=== PATIENT | female | born 1960 | race Caucasian/White ===

== ENCOUNTER → 2017-08-10 | Outpatient (CLI) | payer OTHER ==
--- NOTE | 2017-08-10 16:13 | REPMRS ---
Patient History The patient states she had a clinical breast exam in 08/2017. Patient is postmenopausal. Family history of breast cancer in maternal aunt at age 50 or over, breast cancer in paternal aunt at age 50 or over, and breast cancer in maternal grandmother at age 50 or over. Digital Woman Screen Mammo: August 10, 2017 - Exam #: [id number] Bilateral CC and MLO view(s) were taken. Technologist: Dawna Anthony, Technologist Prior study comparison: August 09, 2016, digital woman screen mammo performed at [facility]. July 11, 2015, digital woman screen mammo performed at [facility]. July 11, 2014, digital woman screen mammo performed at [facility]. FINDINGS: There are scattered fibroglandular densities. There has been no change in the appearance of the mammogram from the prior studies. There is a moderate amount of residual fibroglandular tissue which is fairly symmetric. There is no interval development of dominant mass, architectural distortion, or clustered microcalcification suggestive of malignancy. Scattered lymph nodes are seen in the axillae. No significant changes when compared with prior studies. ASSESSMENT: BI-RADS/ACR category 2 mammogram. Benign finding(s). Recommendation Routine screening mammogram in 1 year (for women over age 40). This mammogram was interpreted with the aid of an FDA-approved computer-aided dectection system. A. Negative x-ray reports should not delay biopsy if a dominant or clinically suspicious mass is present. B. Four to eight percent of cancers are not identified by mammography. C. Adenosis and dense breast may obscure an underlying neoplasm. Electronically Signed By: Gordon Pulido MD 08/10/17 [id number]
== END ==
LOC: M WHC 15:05
PROVIDERS: ATTEND Nurse Practitioner Family
DX: Z12.31 Encounter for screening mammogram for malignant neoplasm of breast (principal); Z78.0 Asymptomatic menopausal state

== ENCOUNTER → 2017-08-10 | Outpatient (REF) | payer OTHER | LOC: M SFHCWAGY 17:01 | PROVIDERS: ATTEND Nurse Practitioner Family | DX: K13.0 Diseases of lips (principal) ==

== ENCOUNTER → 2018-08-11 | Outpatient (CLI) | payer OTHER | LOC: M WHC 15:03 | DX: Z12.31 Encounter for screening mammogram for malignant neoplasm of breast (principal); Z78.0 Asymptomatic menopausal state; Z80.3 Family history of malignant neoplasm of breast | CPT/HCPCS: 77067 ==

== ENCOUNTER → 2018-08-11 | Outpatient (REF) | payer OTHER ==
[2018-08-17 14:24] LABS: HPV HYBRID CAPTURE II Negative (Negative)
== END ==
LOC: M SFHCWAGY 15:30
DX: Z12.4 Encounter for screening for malignant neoplasm of cervix (principal)
CPT/HCPCS: G0123

== ENCOUNTER → 2019-03-01 | Outpatient (CLI) | payer OTHER | LOC: M RAD 15:03 | PROVIDERS: ATTEND Nurse Practitioner Family | DX: Z91.89 Other specified personal risk factors, not elsewhere classified (principal); Z53.9 Procedure and treatment not carried out, unspecified reason ==

== ENCOUNTER → 2019-03-07 | Outpatient (CLI) | payer OTHER ==
[2019-03-07 18:47] LABS: BLOOD UREA NITROGEN 19 MG/DL (7-18); CREATININE FOR GFR 0.76 MG/DL (0.55-1.30); GLOMERULAR FILTRATION RATE > 60.0 (>51)
== END ==
LOC: M SMT 14:47
PROVIDERS: ATTEND Nurse Practitioner Family
DX: I10 Essential (primary) hypertension (principal)

== ENCOUNTER → 2019-04-17 | Outpatient (REF) | payer OTHER | LOC: M SFHCPLAZ 16:11 | PROVIDERS: ATTEND Dermatology | DX: D49.2 Neoplasm of unspecified behavior of bone, soft tissue, and skin (principal) ==

== ENCOUNTER → 2019-08-14 | Outpatient (CLI) | payer OTHER ==
--- NOTE | 2019-08-14 16:52 | REPMRS ---
Patient History The patient states she had a clinical breast exam in 2018. Family history of breast cancer at age 50 or over in maternal grandmother, breast cancer at age 50 or over in maternal aunt, breast cancer at age 50 or over in paternal aunt. No Hormone Replacement Therapy 3D TOMOSYNTHESIS WAS PERFORMED. Digital Woman Screen Mammo: August 14, 2019 - Exam #: [id number] Bilateral CC and MLO view(s) were taken. Technologist: Janelle Rajan, Technologist Prior study comparison: August 11, 2018, bilateral digital woman screen mammo performed at [facility]. August 10, 2017, digital woman screen mammo performed at [facility]. FINDINGS: The breast tissue is heterogeneously dense. This may lower the sensitivity of mammography. There has been no change in the appearance of the mammogram from the prior studies. There is a moderate amount of residual fibroglandular tissue which is fairly symmetric. There is no interval development of dominant mass, areas of architectural distortion, or clustered microcalcification typical of malignancy. Assessment: BI-RADS/ACR category 1 mammogram. Negative Mammogram. Recommendation Routine screening mammogram in 1 year (for women over age 40). This mammogram was interpreted with the aid of an FDA-approved computer-aided dectection system. THE LIFETIME RISK OF BREAST CANCER IS 25.0%, THEREFORE SUPPLEMENTAL SCREENING MRI OF THE BREASTS IS RECOMMENDED IN 6 MONTHS. Electronically Signed By: Jose Juan Patel MD 08/14/19 [id number]
== END ==
LOC: M WHC 15:08
PROVIDERS: ATTEND Nurse Practitioner Family
DX: Z12.31 Encounter for screening mammogram for malignant neoplasm of breast (principal); Z80.3 Family history of malignant neoplasm of breast

== ENCOUNTER → 2019-09-20 | Outpatient (CLI) | payer BC | LOC: M PLALAB 15:53 | PROVIDERS: ATTEND Nurse Practitioner Family | DX: Z13.9 Encounter for screening, unspecified (principal) ==

== ENCOUNTER → 2020-02-26 | Outpatient (REF) | payer BC ==
[2020-02-26 15:08] LABS: BLOOD UREA NITROGEN 16 MG/DL (7-18); GLOMERULAR FILTRATION RATE > 60.0 (>51)
== END ==
LOC: M PLALAB 12:34
PROVIDERS: ATTEND Nurse Practitioner Family
DX: Z91.89 Other specified personal risk factors, not elsewhere classified (principal)

== ENCOUNTER → 2020-10-02 | Outpatient (CLI) | payer BC ==
--- NOTE | 2020-10-02 17:25 | REPMRS ---
Patient History The patient states she had a clinical breast exam in 2020. Family history of breast cancer at age 50 or over in maternal grandmother, breast cancer at age 50 or over in maternal aunt, breast cancer at age 50 or over in paternal aunt. No Hormone Replacement Therapy Digital Woman Screen Mammo: October 02, 2020 - Exam #: [id number] Bilateral CC and MLO view(s) were taken. Technologist: Janelle Rajan, Technologist Prior study comparison: August 14, 2019, bilateral digital woman screen mammo performed at [facility]. August 11, 2018, bilateral digital woman screen mammo performed at [facility]. August 10, 2017, digital woman screen mammo performed at [facility]. FINDINGS: There are scattered fibroglandular densities. The Volpara volumetric breast density category is:B. There has been no change in the appearance of the mammogram from the prior studies. There is a mild amount of scattered fibroglandular density which is fairly symmetric. There is no interval development of dominant mass, architectural distortion, or grouped microcalcification suggestive of malignancy. 3-D tomosynthesis shows no additional findings. Assessment: BI-RADS/ACR category 1 mammogram. Negative Mammogram. Recommendation Breast MRI of both breasts in 6 months. Routine screening mammogram of both breasts in 1 year (for women over age 40). This patient's [facility] Lifetime Breast Cancer Risk is estimated at 23.8 %. Annual screening Breast MRI scanniing is recommended for patient's whose lifetime risk assessment is over 20%. This mammogram was interpreted with the aid of an FDA-approved computer-aided dectection system. Electronically Signed By: Kalin Huertas MD 10/02/20 [id number]
== END | disposition home or self-care (01) ==
LOC: M WHC 15:15
DX: Z12.31 Encounter for screening mammogram for malignant neoplasm of breast (principal)

== ENCOUNTER → 2021-04-01 | Outpatient (CLI) | payer BC ==
[~2021-04-01] MED LIST: PROHANCE 279.3MG/ML 15ML VIAL As Ordered ONE; PROHANCE 279.3MG/ML 5ML VIAL As Ordered ONE
--- NOTE | 2021-04-03 15:31 | REP ---
INDICATION: HIGH RISK BREAST CA DENSE BREAST TISSUE. COMPARISON: Comparison breast MRI study is from March 11, 2020. TECHNIQUE: Three Brianne MRI imaging was performed with a dedicated breast coil. Axial, coronal, and sagittal T1 and T2 weighted scans were obtained with and without fat saturation in the usual fashion. The study includes dynamically acquired post gadolinium-enhanced imaging with image subtraction. Maximum intensity projection and multi planar reformation imaging is included as well. This study is interpreted with the aid of [employer], an FDA approved computer aided detection (CAD) software program, on a dedicated breast MRI workstation. The gadolinium enhancement dose is 19 mL of intravenous ProHance. FINDINGS: There is a mild to moderate amount of fibroglandular tissue bilaterally corresponding with the mammographic pattern. There is minimal background parenchymal enhancement. There is no evidence of axillary lymphadenopathy or significant breast cystic change. High-resolution pre and post-contrast T1 and T2 weighted scans show no suspicious morphologic abnormality in either breast. Dynamically acquired sequential postcontrast images show no suspicious area of enhancement and washout kinetics in either breast to suggest malignancy. Subtraction images show no additional abnormality. IMPRESSION: BI-RADS category 1 negative bilateral breast MRI findings. <Electronically signed by Kalin Huertas > 04/03/21 [id number]
== END ==
LOC: M RAD 17:41
PROVIDERS: ATTEND Nurse Practitioner Family
DX: Z91.89 Other specified personal risk factors, not elsewhere classified (principal)
CPT/HCPCS: A9576; C8908

== ENCOUNTER → 2021-12-01 | Outpatient (CLI) | payer BC, OTHER | LOC: M WHC 14:28 | PROVIDERS: ATTEND Obstetrics & Gynecology | DX: Z12.31 Encounter for screening mammogram for malignant neoplasm of breast (principal); Z80.3 Family history of malignant neoplasm of breast ==

== ENCOUNTER → 2021-12-30 | Outpatient (CLI) | payer OTHER | LOC: M WHC 07:55 | PROVIDERS: ATTEND Obstetrics & Gynecology | DX: M85.851 Other specified disorders of bone density and structure, right thigh (principal) ==

== ENCOUNTER → 2022-04-03 | Outpatient (CLI) | payer OTHER ==
[~2022-04-03] MED LIST changes: +CALC600T60 PO; +CHOL25TA9 PO; +LISI20TA35 PO; +PERC5TAB12 PO; -PROHANCE 279.3MG/ML 15ML VIAL As Ordered ONE; -PROHANCE 279.3MG/ML 5ML VIAL As Ordered ONE
== END ==
LOC: M EKG 10:04
PROVIDERS: ATTEND Anesthesiology
DX: R03.0 Elevated blood-pressure reading, without diagnosis of hypertension (principal); Z78.0 Asymptomatic menopausal state

== ENCOUNTER → 2022-04-04 | Outpatient (CLI) | payer OTHER ==
[~2022-04-04] MED LIST changes: -PERC5TAB12 PO
== END ==
LOC: M LABSMTC 09:42
PROVIDERS: ATTEND Anesthesiology
DX: Z01.812 Encounter for preprocedural laboratory examination (principal); Z20.822 Contact with and (suspected) exposure to COVID-19

== ENCOUNTER 2022-04-07 06:06 | Day surgery (SDC) | payer OTHER ==
[~2022-04-07] VITALS: Ht 160 cm; Wt 103.4 kg
[~2022-04-07 06:06] MED LIST changes: +LR 1,000 ML IV ONE; +ceFAZolin SOD 2 GM in IV 1 EA IV ONE
[2022-04-07] MEDS ORDERED: LR 1,000 ML IV SCH ×2 (06:25→09:15)
[2022-04-07 06:36] LABS: HEMATOCRIT 43.8 % (36.0-47.0); MEAN CORPUSCULAR HEMOGLOBIN 31.3 pg (27.0-33.0); MEAN CORPUSCULAR HGB CONC 34.2 g/dl (32.0-36.5); MEAN CORPUSCULAR VOLUME 91.3 fl (80.0-96.0); PLATELET COUNT, AUTOMATED 310 10^3/uL (150-450); WHITE BLOOD COUNT 6.9 10^3/uL (4.0-10.0)
[2022-04-07 06:53] LABS: BLOOD UREA NITROGEN 13 MG/DL (7-18); CALCIUM LEVEL 9.2 MG/DL (8.8-10.2); CARBON DIOXIDE LEVEL 31 MEQ/L (21-32); CHLORIDE LEVEL 107 MEQ/L (98-107); CREATININE FOR GFR 0.76 MG/DL (0.55-1.30); GLOMERULAR FILTRATION RATE > 60.0 (>45); GLUCOSE, FASTING 123 MG/DL (70-100); POTASSIUM SERUM 3.8 MEQ/L (3.5-5.1); SODIUM LEVEL 142 MEQ/L (136-145)
[2022-04-07] MEDS ORDERED: fentaNYL 100 MCG/2 ML INJECTION As Ordered ONE ×2 (07:13→08:55)
[2022-04-07] MEDS ORDERED: MIDAZOLAM INJ 2MG/2ML VIAL (J2250 PER 1MG) As Ordered ONE (07:13)
[2022-04-07] MEDS ORDERED: propofoL 200 MG/20 ML VIAL As Ordered ONE (07:14)
[2022-04-07] MEDS ORDERED: LIDOCAINE 2% 100MG/5ML SDV (FOR ANES.) As Ordered ONE (07:14)
[2022-04-07] MEDS ORDERED: ROCURONIUM BROMIDE 50 MG/5 ML VIAL As Ordered ONE ×2 (07:14→08:21)
[2022-04-07] MEDS ORDERED: FLUORESCEIN 10% (100MG/ML) 5ML VIAL As Ordered ONE (07:14)
[2022-04-07] MEDS ORDERED: ONDANSETRON 4MG 2ML VIAL As Ordered ONE (07:14)
[2022-04-07] MEDS ORDERED: dexameTHASONE 4 MG/ML 1ML VIAL (J1100 PER 1MG) As Ordered ONE (07:14)
[2022-04-07] MEDS ORDERED: BUPIVACAINE/EPIN 0.25% 30 ML VIAL As Ordered ONE (07:14)
[2022-04-07] MEDS ORDERED: ACETAMINOPHEN 1000MG 100ML IV BTL (OFIRMEV) (J0131 PER 10MG) As Ordered ONE (07:14)
[2022-04-07] MEDS ORDERED: KETAMINE HCL 200 MG/20 ML VIAL As Ordered ONE (07:15)
[2022-04-07] MEDS ORDERED: SUGAMMADEX SODIUM 500 MG/5 ML VIAL (BRIDION) As Ordered ONE (08:41)
[2022-04-07] MEDS ORDERED: KETOROLAC 60MG 2ML VIAL As Ordered ONE (08:50)
[2022-04-07] MEDS ORDERED: ONDANSETRON 4MG 2ML VIAL IV PRN (09:15)
[2022-04-07] MEDS ORDERED: fentaNYL 100 MCG/2 ML INJECTION IV PRN (09:15)
[2022-04-07] MEDS ORDERED: PERC5TAB12 PO (09:17)
[2022-04-07] MEDS: oxyCODONE 5MG TAB PO PRN ×2 (09:39→10:03)
[2022-04-07] MEDS ORDERED: METOCLOPRAMIDE INJ 10MG/2ML VIAL (J2765 PER 1) IV ONE (10:30)
[2022-04-07 11:00] VITALS: BP 133/62
[2022-04-07] MEDS ORDERED: SIMETHICONE 80MG CHEW TAB PO SCH (11:00)
[2022-04-07] MEDS ORDERED: PERCOCET 5MG/325MG TAB PO PRN (11:00)
[2022-04-07] MEDS ORDERED: IBUPROFEN 800 MG TAB PO SCH (16:00)
== END 2022-04-07 11:31 | disposition home or self-care (01) ==
LOC: M SDC 06:06
PROVIDERS: ATTEND Obstetrics & Gynecology
DX: D25.9 Leiomyoma of uterus, unspecified (principal); N80.0 Endometriosis of uterus; N88.8 Other specified noninflammatory disorders of cervix uteri; D27.0 Benign neoplasm of right ovary; D27.1 Benign neoplasm of left ovary; Z88.0 Allergy status to penicillin
CPT/HCPCS: 36415; 58571; 80048; 85027; 86850; 86900; 86901; 88307; J0131; J0690; J1100; J1885; J2250; J2405; J2765; J3010; S2900

== ENCOUNTER → 2022-12-02 | Outpatient (CLI) | payer OTHER ==
[~2022-12-02] MED LIST changes: -LR 1,000 ML IV ONE; +PERC5TAB12 PO; -ceFAZolin SOD 2 GM in IV 1 EA IV ONE
== END ==
LOC: M WHC 16:47
PROVIDERS: ATTEND Internal Medicine
DX: Z12.31 Encounter for screening mammogram for malignant neoplasm of breast (principal)

== ENCOUNTER 2022-12-23 08:09 | Day surgery (SDC) | payer OTHER ==
[~2022-12-23] VITALS: Ht 160 cm; Wt 102.9 kg
[~2022-12-23 08:09] MED LIST changes: +NS 1,000 ML IV ONE
[2022-12-23] MEDS ORDERED: LIDOCAINE 2% 100MG/5ML SDV (FOR ANES.) As Ordered ONE (09:14)
[2022-12-23] MEDS ORDERED: propofoL 200 MG/20 ML VIAL As Ordered ONE (09:14)
[2022-12-23 09:47] VITALS: BP 130/67
== END 2022-12-23 09:49 | disposition home or self-care (01) ==
LOC: M OPP 08:09
PROVIDERS: ATTEND Surgery
DX: Z12.11 Encounter for screening for malignant neoplasm of colon (principal); K63.5 Polyp of colon; K57.30 Diverticulosis of large intestine without perforation or abscess without bleeding; I10 Essential (primary) hypertension; Z79.899 Other long term (current) drug therapy; Z88.0 Allergy status to penicillin; Z86.16 Personal history of COVID-19

== ENCOUNTER → 2023-06-06 | Outpatient (REF) | payer OTHER ==
[~2023-06-06] MED LIST changes: -NS 1,000 ML IV ONE
== END ==
LOC: M SFHCDERM 14:12
PROVIDERS: ATTEND Physician Assistant
DX: D18.01 Hemangioma of skin and subcutaneous tissue (principal)

== ENCOUNTER → 2023-12-28 | Outpatient (CLI) | payer OTHER | LOC: M WHC 07:10 | PROVIDERS: ATTEND Internal Medicine | DX: Z12.31 Encounter for screening mammogram for malignant neoplasm of breast (principal) ==

== ENCOUNTER → 2024-03-01 | Outpatient (CLI) | payer OTHER | LOC: M WHC 07:50 | PROVIDERS: ATTEND Obstetrics & Gynecology | DX: Z13.820 Encounter for screening for osteoporosis (principal); M85.89 Other specified disorders of bone density and structure, multiple sites ==

== ENCOUNTER → 2024-06-11 | Outpatient (REF) | payer OTHER | LOC: M SFHCDERM 17:34 | PROVIDERS: ATTEND Physician Assistant | DX: D23.71 Other benign neoplasm of skin of right lower limb, including hip (principal) ==

== ENCOUNTER → 2025-03-12 | Outpatient (CLI) | payer OTHER | LOC: M WHC 07:42 | PROVIDERS: ATTEND Nurse Practitioner Family | DX: Z12.31 Encounter for screening mammogram for malignant neoplasm of breast (principal) ==